=== PATIENT | female | born 1955 ===

== ENCOUNTER 2019-05-28 06:15 | Day surgery (SDC) | payer OTHER ==
[~2019-05-28 06:15] MED LIST: ABILIFY PO; ENALAPRIL MALE2.5 MG PO; GLIPIZIDE ER5 MG PO; LIPITOR20 MG PO; PLAVIX75 MG PO; SYNTH PO
== END 2019-05-28 15:00 | disposition home or self-care (01) ==
LOC: CIR.AMB 06:15
DX: M75.111 Incomplete rotator cuff tear or rupture of right shoulder, not specified as traumatic (principal); M13.811 Other specified arthritis, right shoulder